=== PATIENT | female | born 1965 | race American Indian/Alaskan Native ===

== ENCOUNTER 2019-11-14 13:36 | Emergency (ER) | payer MEDICAID ==
[2019-11-14] MEDS ORDERED: IPRATROPIUM/ALBUTEROL SULFATE 3 ML AMPUL.NEB IH ONE (14:04)
[2019-11-14] MEDS ORDERED: FUROSEMIDE 20 MG/2 ML INJ IV ONE (14:04)
[2019-11-14] MEDS ORDERED: dexAMETHasone 4 MG/ML VIAL IV ONE (14:05)
--- NOTE | 2019-11-14 14:12 | Emergency Department Report ---
ED Shortness of Breath HPI - General Chief Complaint: Dyspnea/Respdistress Stated Complaint: REGGIE Time Seen by Provider: 11/14/19 13:58 Source: patient Mode of arrival: Stretcher Limitations: No Limitations - History of Present Illness Initial Comments: This is a 54-year-old female that presents to the ED with c/o of bilateral leg swelling,. SOB, wheezing, and chest tightness. Patient denies any radiation of pain x2 days. Last known stress test and echocardiogram is unknown. Patient denies any hemoptysis, fever, chills, nausea, vomiting, headache, stiff neck, numbness, tingling, abdominal pain. Patient denies pleuritic chest pain. Patient denies any recent travels or long car rides. Patient denies any recent surgeries or any sick contacts. Patient denies any drug allergies. Denies any leg pain or calf pain. PMH includes DM, CABG, UT, CVA, HTN, and ashtma. MD Complaint: shortness of breath, chest pain -: days(s) (2) Severity: mild Pain Scale: 3 Quality: other (tightness) Consistency: constant Improves With: nothing Worsens With: nothing Associated Symptoms: chest pain, orhopnia, lower extremity pain Treatments Prior to Arrival: none - Related Data Home Medications Medication Instructions Recorded Confirmed Last Taken Aspirin [Aspirin BABY CHEW TAB] 81 mg PO DAILY 02/21/14 11/14/19 Unknown Clopidogrel Bisulfate [Plavix] 75 mg PO DAILY 02/21/14 11/14/19 Unknown Insulin Glargine,Hum.rec.anlog 30 units SQ QHS 02/21/14 11/14/19 Unknown [Lantus] Omeprazole [PriLOSEC] 20 mg PO DAILY 02/21/14 11/14/19 Unknown Sertraline [Zoloft] 50 mg PO DAILY 02/21/14 11/14/19 Unknown AtorvaSTATin 80 mg PO HS 11/14/19 11/14/19 Unknown Coreg 12.5 mg PO BID 11/14/19 11/14/19 Unknown Gabapentin 300 mg PO TID 11/14/19 11/14/19 Unknown amLODIPine 5 mg PO DAILY 11/14/19 11/14/19 Unknown Previous Rx's Medication Instructions Recorded Last Taken Type Aspirin [Aspirin BABY CHEW TAB] 81 mg PO QDAY #30 tab.chew 04/17/17 Unknown Rx Allergies Allergy/AdvReac Type Severity Reaction Status Date / Time No Known Allergies Allergy Unverified 02/21/14 21:07 ED Review of Systems ROS: Stated complaint: REGGIE Other details as noted in HPI Constitutional: denies: chills, fever Eyes: denies: eye pain, eye discharge, vision change ENT: denies: ear pain, throat pain Respiratory: shortness of breath, wheezing. denies: cough Cardiovascular: chest pain. denies: palpitations Endocrine: no symptoms reported Gastrointestinal: denies: abdominal pain, nausea, diarrhea Genitourinary: denies: urgency, dysuria, discharge Musculoskeletal: denies: back pain, joint swelling, arthralgia Skin: denies: rash, lesions Neurological: denies: headache, weakness, paresthesias Psychiatric: denies: anxiety, depression Hematological/Lymphatic: denies: easy bleeding, easy bruising ED Past Medical Hx - Past Medical History Previous Medical History?: Yes Hx Hypertension: Yes Hx CVA: Yes (L sided deficits) Hx Heart Attack/AMI: Yes Hx Diabetes: Yes Hx Asthma: Yes Additional medical history: neuropathy, gout - Surgical History Past Surgical History?: Yes Hx Open Heart Surgery: Yes (triple CABG) Additional Surgical History: - Social History Smoking Status: Never Smoker Substance Use Type: None - Medications Home Medications: Home Medications Medication Instructions Recorded Confirmed Last Taken Type Aspirin [Aspirin BABY CHEW TAB] 81 mg PO DAILY 02/21/14 11/14/19 Unknown History Clopidogrel Bisulfate [Plavix] 75 mg PO DAILY 02/21/14 11/14/19 Unknown History Insulin Glargine,Hum.rec.anlog 30 units SQ QHS 02/21/14 11/14/19 Unknown History [Lantus] Omeprazole [PriLOSEC] 20 mg PO DAILY 02/21/14 11/14/19 Unknown History Sertraline [Zoloft] 50 mg PO DAILY 02/21/14 11/14/19 Unknown History Aspirin [Aspirin BABY CHEW TAB] 81 mg PO QDAY #30 tab.chew 04/17/17 11/14/19 Unknown Rx AtorvaSTATin 80 mg PO HS 11/14/19 11/14/19 Unknown History Coreg 12.5 mg PO BID 11/14/19 11/14/19 Unknown History Gabapentin 300 mg PO TID 11/14/19 11/14/19 Unknown History amLODIPine 5 mg PO DAILY 11/14/19 11/14/19 Unknown History ED Physical Exam - General Limitations: No Limitations General appearance: alert, in no apparent distress - Head Head exam: Present: atraumatic, normocephalic - Eye Eye exam: Present: normal appearance - Neck Neck exam: Present: normal inspection, full ROM. Absent: tenderness, meningismus - Respiratory Respiratory exam: Present: wheezes. Absent: respiratory distress, chest wall tenderness, accessory muscle use, decreased breath sounds, prolonged expiratory - Cardiovascular Cardiovascular Exam: Present: tachycardia. Absent: bradycardia, irregular rhythm - GI/Abdominal GI/Abdominal exam: Present: soft, normal bowel sounds. Absent: distended, tenderness, guarding, rebound, rigid, diminished bowel sounds - Extremities Exam Extremities exam: Present: full ROM, normal capillary refill, pedal edema (bilateral 2+). Absent: tenderness, calf tenderness - Back Exam Back exam: Present: normal inspection, full ROM - Neurological Exam Neurological exam: Present: alert, oriented X3, normal gait - Psychiatric Psychiatric exam: Present: normal affect, normal mood - Skin Skin exam: Present: warm, dry, intact, normal color. Absent: rash ED Course Vital Signs 11/14/19 11/14/19 11/14/19 13:44 13:46 13:50 Temperature 98.6 F Pulse Rate 122 H 117 H Respiratory 22 16 Rate Blood Pressure 174/115 163/110 Blood Pressure [Left] O2 Sat by Pulse 100 98 99 Oximetry 11/14/19 11/14/19 11/14/19 14:00 14:28 14:30 Temperature Pulse Rate 121 H 119 H 118 H Respiratory 12 22 12 Rate Blood Pressure 182/112 183/124 182/119 Blood Pressure [Left] O2 Sat by Pulse 99 99 99 Oximetry 11/14/19 11/14/19 11/14/19 14:45 15:10 15:15 Temperature Pulse Rate 115 H Respiratory 17 Rate Blood Pressure 176/118 188/119 192/122 Blood Pressure [Left] O2 Sat by Pulse 100 98 96 Oximetry 11/14/19 11/14/19 11/14/19 15:30 15:43 15:45 Temperature 98.6 F Pulse Rate 115 H Respiratory 16 Rate Blood Pressure 194/126 192/123 Blood Pressure 192/123 [Left] O2 Sat by Pulse 97 100 99 Oximetry 11/14/19 11/14/19 11/14/19 16:00 16:15 16:30 Temperature Pulse Rate Respiratory Rate Blood Pressure 197/123 181/113 177/102 Blood Pressure [Left] O2 Sat by Pulse 95 96 96 Oximetry 11/14/19 11/14/19 11/14/19 16:45 17:00 17:33 Temperature Pulse Rate Respiratory Rate Blood Pressure 170/108 164/106 164/106 Blood Pressure [Left] O2 Sat by Pulse 96 98 98 Oximetry 11/14/19 17:35 Temperature Pulse Rate 120 H Respiratory 16 Rate Blood Pressure Blood Pressure 148/90 [Left] O2 Sat by Pulse 96 Oximetry - Reevaluation(s) Reevaluation #1: 11/14/19 14:13 Patient is speaking in full sentences with no signs of distress noted. - Consultations Consultation #1: 11/14/19 17:42 Patient has been consulted with Dr. Angie V about patient history, physical exam, and labs and accepts patient to services. ED Medical Decision Making - Lab Data Result diagrams: 11/14/19 14:36 11/14/19 14:36 Lab Results 11/14/19 11/14/19 11/14/19 Range/Units 14:36 14:36 14:36 WBC 7.4 (4.5-11.0) K/mm3 RBC 3.34 L (3.65-5.03) M/mm3 Hgb 10.2 (10.1-14.3) gm/dl Hct 30.7 (30.3-42.9) % MCV 92 (79-97) fl MCH 31 (28-32) pg MCHC 33 (30-34) % RDW 14.2 (13.2-15.2) % Plt Count 312 (140-440) K/mm3 Lymph % (Auto) 20.6 (13.4-35.0) % Foster % (Auto) 8.8 H (0.0-7.3) % Eos % (Auto) 2.6 (0.0-4.3) % Baso % (Auto) 1.3 (0.0-1.8) % Lymph # 1.5 (1.2-5.4) K/mm3 Foster # 0.7 (0.0-0.8) K/mm3 Eos # 0.2 (0.0-0.4) K/mm3 Baso # 0.1 (0.0-0.1) K/mm3 Seg Neutrophils % 66.7 (40.0-70.0) % Seg Neutrophils # 5.0 (1.8-7.7) K/mm3 PT 14.1 (12.2-14.9) Sec. INR 1.11 (0.87-1.13) APTT 26.2 (24.2-36.6) Sec. D-Dimer 1429.66 H (0-234) ng/mlDDU Sodium 138 (137-145) mmol/L Potassium 5.3 H (3.6-5.0) mmol/L Chloride 106.6 (98-107) mmol/L Carbon Dioxide 19 L (22-30) mmol/L Anion Gap 18 mmol/L BUN 31 H (7-17) mg/dL Creatinine 2.8 H (0.7-1.2) mg/dL Estimated GFR 21 ml/min BUN/Creatinine Ratio 11 % Glucose 259 H (65-100) mg/dL Calcium 8.8 (8.4-10.2) mg/dL Total Bilirubin 0.90 (0.1-1.2) mg/dL AST 25 (5-40) units/L ALT 29 (7-56) units/L Alkaline Phosphatase 98 (35-129) units/L Troponin T 0.015 (0.00-0.029) ng/mL NT-Pro-B Natriuret Pep (0-900) pg/mL Total Protein 6.4 (6.3-8.2) g/dL Albumin 3.5 L (3.9-5) g/dL Albumin/Globulin Ratio 1.2 % Urine Color (Yellow) Urine Turbidity (Clear) Urine pH (5.0-7.0) Ur Specific [place] (1.003-1.030) Urine Protein (Negative) mg/dL Urine Glucose (UA) (Negative) mg/dL Urine Ketones (Negative) mg/dL Urine Blood (Negative) Urine Nitrite (Negative) Urine Bilirubin (Negative) Urine Urobilinogen (<2.0) mg/dL Ur Leukocyte Esterase (Negative) Urine WBC (Auto) (0.0-6.0) /HPF Urine RBC (Auto) (0.0-6.0) /HPF U Epithel Cells (Auto) (0-13.0) /HPF Urine Bacteria (Auto) (Negative) /HPF Urine Mucus /HPF 11/14/19 11/14/19 Range/Units 14:36 Unknown WBC (4.5-11.0) K/mm3 RBC (3.65-5.03) M/mm3 Hgb (10.1-14.3) gm/dl Hct (30.3-42.9) % MCV (79-97) fl MCH (28-32) pg MCHC (30-34) % RDW (13.2-15.2) % Plt Count (140-440) K/mm3 Lymph % (Auto) (13.4-35.0) % Foster % (Auto) (0.0-7.3) % Eos % (Auto) (0.0-4.3) % Baso % (Auto) (0.0-1.8) % Lymph # (1.2-5.4) K/mm3 Foster # (0.0-0.8) K/mm3 Eos # (0.0-0.4) K/mm3 Baso # (0.0-0.1) K/mm3 Seg Neutrophils % (40.0-70.0) % Seg Neutrophils # (1.8-7.7) K/mm3 PT (12.2-14.9) Sec. INR (0.87-1.13) APTT (24.2-36.6) Sec. D-Dimer (0-234) ng/mlDDU Sodium (137-145) mmol/L Potassium (3.6-5.0) mmol/L Chloride (98-107) mmol/L Carbon Dioxide (22-30) mmol/L Anion Gap mmol/L BUN (7-17) mg/dL Creatinine (0.7-1.2) mg/dL Estimated GFR ml/min BUN/Creatinine Ratio % Glucose (65-100) mg/dL Calcium (8.4-10.2) mg/dL Total Bilirubin (0.1-1.2) mg/dL AST (5-40) units/L ALT (7-56) units/L Alkaline Phosphatase (35-129) units/L Troponin T (0.00-0.029) ng/mL NT-Pro-B Natriuret Pep 9275 H (0-900) pg/mL Total Protein (6.3-8.2) g/dL Albumin (3.9-5) g/dL Albumin/Globulin Ratio % Urine Color Straw (Yellow) Urine Turbidity Clear (Clear) Urine pH 6.0 (5.0-7.0) Ur Specific [place] 1.008 (1.003-1.030) Urine Protein 100 mg/dl (Negative) mg/dL Urine Glucose (UA) >=500 (Negative) mg/dL Urine Ketones Neg (Negative) mg/dL Urine Blood Sm (Negative) Urine Nitrite Neg (Negative) Urine Bilirubin Neg (Negative) Urine Urobilinogen < 2.0 (<2.0) mg/dL Ur Leukocyte Esterase Tr (Negative) Urine WBC (Auto) 2.0 (0.0-6.0) /HPF Urine RBC (Auto) 1.0 (0.0-6.0) /HPF U Epithel Cells (Auto) 2.0 (0-13.0) /HPF Urine Bacteria (Auto) 1+ (Negative) /HPF Urine Mucus Few /HPF - EKG Data 11/14/19 14:30 Sinus tachycardia 122. No significant ST abnormalities. signed and reviewed by Dr. Wong. - Radiology Data Patient Name: ANGELA VILLANUEVA Gender: Female Date of : 1965 Referring Provider: SIENNA DEL VALLE Organization: [facility] Accession Number: [id number] Requested Date: November 14, 2019 15:37 Report Status: Final Requested Procedure: 1 Procedure Description: NM perfusion only lung scan Modality: NM Findings Reporting MD: Daniel Wilkinson Dictation Time: November 14, 2019 16:33 Patient Navigator: Not available Industrial Relations Officer Date: NUCLEAR MEDICINE PERFUSION LUNG SCAN INDICATION / CLINICAL INFORMATION: sob/elevated d-dimmer. TECHNIQUE: 4.9 mCi of Tc-99m MAA were given by IV. COMPARISON: Chest radiograph dated earlier today. FINDINGS: PERFUSION: No significant perfusion defects. ADDITIONAL FINDINGS: None. IMPRESSION: 1. Low probability for pulmonary embolism. Signer Name: Daniel Wilkinson MD Signed: 11/14/2019 4:33 PM Workstation Name: [id number] Patient Name: ANGELA VILLANUEVA Gender: Female Date of : 1965 Referring Provider: SIENNA DEL VALLE Organization: [facility] Accession Number: [id number] Requested Date: November 14, 2019 14:04 Report Status: Final Requested Procedure: 1 Procedure Description: XR chest routine 2V Modality: XR Findings Reporting MD: Daniel Wilkinson Dictation Time: November 14, 2019 13:45 Patient Navigator: Not available Industrial Relations Officer Date: CHEST 2 VIEWS INDICATION / CLINICAL INFORMATION: MAIN: Chest Pain X 3 DAYS. COMPARISON: Chest radiograph 04/16/2017 FINDINGS: SUPPORT DEVICES: None. HEART / MEDIASTINUM: Normal heart size. Previous median sternotomy and CABG. LUNGS / PLEURA: No airspace consolidation or pleural fluid. There is interstitial reticulation throughout both lungs including Kerry B lines. No pneumothorax. ADDITIONAL FINDINGS: No significant additional findings. IMPRESSION: Appearance is suggestive of mild interstitial pulmonary edema. Signer Name: Daniel Wilkinson MD Signed: 11/14/2019 1:45 PM Workstation Name: [id number] - Medical Decision Making 54-year-old female that presents with CHF exacerbation. Patient is stable and was examined by me. Labs has been obtained. VQ scan obtained and negative for PE. Chest x-ray does show that she has some fluid in her lungs due to CHF. Patient admitted with hospitalist Dr. Adams. At time of admission, the patient does not seem toxic or ill in appearance. No acute signs of distress noted. Patient agrees to admission treatment plan of care. No further questions noted by the patient. At the time of admission, patient stated she wants to leave. Patient was notified of the risk and complications if not further evaulation and treatment but patient refused. 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 Patient signed AMA. Critical care attestation.: If time is entered above; I have spent that time in minutes in the direct care of this critically ill patient, excluding procedure time. ED Disposition Clinical Impression: Uncontrolled hypertension Acute exacerbation of CHF (congestive heart failure) Qualifiers: Heart failure type: unspecified Qualified Code(s): I50.9 - Heart failure, unspecified Disposition: DC-07 LEFT AGAINST MED ADVICE Is pt being admited?: No Does the pt Need Aspirin: No Condition: Undetermined Instructions: Heart Failure (ED), Chronic Hypertension (ED) Additional Instructions: You are leaving AGAINST MEDICAL ADVICE. As instructed and educated to you during your ED stay that this is a serious medical condition and if not further evaluated and or treated this could cause serious complications and or . Referrals: ZURI SCOTT MD [Staff Physician] - [facility], [Primary Care Provider] - [facility] CAITY SAMPSON MD [Staff Physician] - [facility] Forms: AMA Form
--- NOTE | 2019-11-14 14:49 | XRay Report ---
CHEST 2 VIEWS INDICATION / CLINICAL INFORMATION: MAIN: Chest Pain X 3 DAYS. COMPARISON: Chest radiograph 04/16/2017 FINDINGS: SUPPORT DEVICES: None. HEART / MEDIASTINUM: Normal heart size. Previous median sternotomy and CABG. LUNGS / PLEURA: No airspace consolidation or pleural fluid. There is interstitial reticulation throug hout both lungs including Kerry B lines. No pneumothorax. ADDITIONAL FINDINGS: No significant additional findings. IMPRESSION: Appearance is suggestive of mild interstitial pulmonary edema. Signer Name: Daniel Wilkinson MD Signed: 11/14/2019 2:45 PM Workstation Name: [id number]
[2019-11-14 15:24] LABS: Basophils # (Auto) 0.1 K/mm3 (0.0-0.1); Basophils % (Auto) 1.3 % (0.0-1.8); Eosinophils # (Auto) 0.2 K/mm3 (0.0-0.4); Eosinophils % (Auto) 2.6 % (0.0-4.3); Hematocrit 30.7 % (30.3-42.9); Hemoglobin 10.2 gm/dl (10.1-14.3); Lymphocytes # (Auto) 1.5 K/mm3 (1.2-5.4); Lymphocytes % (Auto) 20.6 % (13.4-35.0); Mean Corpuscular HGB Conc 33 % (30-34); Mean Corpuscular Volume 92 fl (79-97); Monocytes # (Auto) 0.7 K/mm3 (0.0-0.8); Monocytes % (Auto) 8.8 % (0.0-7.3); Platelet Count 312 K/mm3 (140-440); Red Blood Count 3.34 M/mm3 (3.65-5.03); Red Cell Distribution Width 14.2 % (13.2-15.2)
[2019-11-14 15:26] LABS: Albumin 3.5 g/dL (3.9-5); Calcium 8.8 mg/dL (8.4-10.2)
[2019-11-14 15:32] LABS: Bacteria,Urine 1+ /HPF (Negative); Bilirubin,Urine NEG (Negative); Blood,Urine SM (Negative); Color,Urine Straw (Yellow); Mucus,Urine FEW /HPF; Urobilinogen,Urine < 2.0 mg/dL (<2.0)
[2019-11-14 15:32] LABS: INR 1.11 (0.87-1.13); Partial Thromboplastin Time 26.2 Sec. (24.2-36.6)
[2019-11-14] MEDS ORDERED: hydrALAZINE 20 MG/1 ML INJ IV ONE (16:21)
[2019-11-14 17:36] VITALS: BP 148/90
--- NOTE | 2019-11-14 17:37 | Nuclear Medicine Report ---
NUCLEAR MEDICINE PERFUSION LUNG SCAN INDICATION / CLINICAL INFORMATION: sob/elevated d-dimmer. TECHNIQUE: 4.9 mCi of Tc-99m MAA were given by IV. COMPARISON: Chest radiograph dated earlier today. FINDINGS: PERFUSION: No significant perfusion defects. ADDITIONAL FINDINGS: None. IMPRESSION: 1. Low probability for pulmonary embolism. Signer Name: Daniel Wilkinson MD Signed: 11/14/2019 5:33 PM Workstation Name: [id number]
== END 2019-11-14 18:37 | disposition left against medical advice (07) ==
LOC: ED 13:36
DX: I11.0 Hypertensive heart disease with heart failure (principal); I50.9 Heart failure, unspecified; I25.2 Old myocardial infarction; J45.909 Unspecified asthma, uncomplicated; E11.9 Type 2 diabetes mellitus without complications; M10.9 Gout, unspecified; Z98.890 Other specified postprocedural states; Z86.73 Personal history of transient ischemic attack (TIA), and cerebral infarction without residual deficits; Z79.899 Other long term (current) drug therapy; Z95.5 Presence of coronary angioplasty implant and graft
CPT/HCPCS: 36415; 71046; 78580; 80053; 81001; 83880; 84484; 85025; 85379; 85610; 85730; 93005; 96374; 96375; 99285; A9540; J0360; J1100; J1940

== ENCOUNTER 2020-02-19 01:30 | Emergency (ER) | payer MEDICAID ==
[2020-02-19 02:33] VITALS: BP 165/113
[2020-02-19 03:19] LABS: Basophils # (Auto) 0.1 K/mm3 (0.0-0.1); Basophils % (Auto) 1.1 % (0.0-1.8); Eosinophils # (Auto) 0.1 K/mm3 (0.0-0.4); Eosinophils % (Auto) 0.7 % (0.0-4.3); Hematocrit 36.3 % (30.3-42.9); Hemoglobin 12.1 gm/dl (10.1-14.3); Lymphocytes # (Auto) 1.6 K/mm3 (1.2-5.4); Lymphocytes % (Auto) 18.3 % (13.4-35.0); Mean Corpuscular HGB Conc 33 % (30-34); Mean Corpuscular Volume 92 fl (79-97); Monocytes # (Auto) 0.9 K/mm3 (0.0-0.8); Monocytes % (Auto) 9.8 % (0.0-7.3); Platelet Count 272 K/mm3 (140-440); Red Blood Count 3.95 M/mm3 (3.65-5.03)
[2020-02-19 03:37] LABS: Calcium 8.7 mg/dL (8.4-10.2)
--- NOTE | 2020-02-19 03:51 | XRay Report ---
CHEST 1 VIEW INDICATION: jorje. COMPARISON: 11/14/2019 FINDINGS: Support devices: None. Heart: Stable cardiomegaly status post previous median sternotomy. Lungs/Pleura: Mild blunting remains at the cardiophrenic angles. No acute infiltrate. Additional findings: None. IMPRESSION: Stable chest. Signer Name: Josue Griffin MD Signed: 02/19/2020 3:47 AM Workstation Name: [id number]
== END 2020-02-19 06:45 | disposition left against medical advice (07) ==
LOC: ED 01:30
DX: M79.89 Other specified soft tissue disorders (principal); R06.00 Dyspnea, unspecified; Z53.21 Procedure and treatment not carried out due to patient leaving prior to being seen by health care provider
CPT/HCPCS: 36415; 71045; 80048; 85025; 93005

== ENCOUNTER 2020-03-04 21:05 | Emergency (ER) | payer MEDICAID ==
[~2020-03-04 21:05] MED LIST: CALCIUM CHLORIDE 1,000 MG/10 ML SYRINGE IV ONE; EPINEPHrine 1 MG/10 ML SYRINGE ONE; SODIUM BICARB 8.4% 50 MEQ/50 ML SYRINGE IV ONE
[2020-03-04] MEDS ORDERED: SODIUM CHLORIDE 0.9% 1000 ML 2,000 ML ONE (21:18)
[2020-03-04] MEDS ORDERED: NORepinephrine/NS 4 MG-250 ML 4 MG/250 ML BAG IV ONE (21:25)
[2020-03-04] MEDS ORDERED: EPINEPHrine 1 MG/1 ML 8 MG in SODIUM CHLORIDE 0.9% 250ML 242 ML IV ONE (21:32)
--- NOTE | 2020-03-04 21:52 | Emergency Department Report ---
ED CPR HPI - General Stated Complaint: CARDIAC ARREST - History of Present Illness Initial Comments: This is a 54-year-old -[place] female who presents to the emergency department via EMS from home in cardiac arrest. Apparently the patient came home this evening and family found her unresponsive about 10 to 15 minutes later. EMS says that her downtime was around 15 minutes prior to their arrival. Upon arrival the patient was pulseless and in asystole. The patient was intubated and was receiving bag valve ventilation. She was receiving chest compressions. A peripheral IV was placed by EMS and the patient received a total of 3 rounds of epinephrine and 1 of sodium bicarbonate. The patient went from asystole to PEA. She had a critical high Accu-Chek. The only past medical history from EMS is that the patient has diabetes. The patient appears to have been to our hospital previously and also has a history of hypertension and CHF. The patient arrives to bed #1 still pulseless and in PEA. - Related Data Home Medications Medication Instructions Recorded Confirmed Last Taken Aspirin [Aspirin BABY CHEW TAB] 81 mg PO DAILY 02/21/14 11/14/19 Unknown Clopidogrel Bisulfate [Plavix] 75 mg PO DAILY 02/21/14 11/14/19 Unknown Insulin Glargine,Hum.rec.anlog 30 units SQ QHS 02/21/14 11/14/19 Unknown [Lantus] Omeprazole [PriLOSEC] 20 mg PO DAILY 02/21/14 11/14/19 Unknown Sertraline [Zoloft] 50 mg PO DAILY 02/21/14 11/14/19 Unknown AtorvaSTATin 80 mg PO HS 11/14/19 11/14/19 Unknown Coreg 12.5 mg PO BID 11/14/19 11/14/19 Unknown Gabapentin 300 mg PO TID 11/14/19 11/14/19 Unknown amLODIPine 5 mg PO DAILY 11/14/19 11/14/19 Unknown Previous Rx's Medication Instructions Recorded Last Taken Type Aspirin [Aspirin BABY CHEW TAB] 81 mg PO QDAY #30 tab.chew 04/17/17 Unknown Rx Allergies Allergy/AdvReac Type Severity Reaction Status Date / Time No Known Allergies Allergy Unverified 02/21/14 21:07 ED Review of Systems ROS: Stated complaint: CARDIAC ARREST Other details as noted in HPI Comment: Unobtainable due to pts medical conditions ED Past Medical Hx - Past Medical History Hx Hypertension: Yes Hx CVA: Yes (L sided deficits) Hx Heart Attack/AMI: Yes Hx Diabetes: Yes Hx Asthma: Yes Additional medical history: neuropathy, gout - Surgical History Hx Open Heart Surgery: Yes (triple CABG) Additional Surgical History: - Social History Smoking Status: Never Smoker Substance Use Type: None - Medications Home Medications: Home Medications Medication Instructions Recorded Confirmed Last Taken Type Aspirin [Aspirin BABY CHEW TAB] 81 mg PO DAILY 02/21/14 11/14/19 Unknown History Clopidogrel Bisulfate [Plavix] 75 mg PO DAILY 02/21/14 11/14/19 Unknown History Insulin Glargine,Hum.rec.anlog 30 units SQ QHS 02/21/14 11/14/19 Unknown History [Lantus] Omeprazole [PriLOSEC] 20 mg PO DAILY 02/21/14 11/14/19 Unknown History Sertraline [Zoloft] 50 mg PO DAILY 02/21/14 11/14/19 Unknown History Aspirin [Aspirin BABY CHEW TAB] 81 mg PO QDAY #30 tab.chew 04/17/17 11/14/19 Unknown Rx AtorvaSTATin 80 mg PO HS 11/14/19 11/14/19 Unknown History Coreg 12.5 mg PO BID 11/14/19 11/14/19 Unknown History Gabapentin 300 mg PO TID 11/14/19 11/14/19 Unknown History amLODIPine 5 mg PO DAILY 11/14/19 11/14/19 Unknown History ED Physical Exam - Other Other exam information: GENERAL: Patient is ill-appearing and unresponsive. HENT: Normocephalic. Atraumatic. EYES: Pupils are fixed and dilated. NECK: Supple. Trachea appears midline. CHEST/LUNGS: There are no spontaneous respirations. HEART/CARDIOVASCULAR: There are no spontaneous heart sounds. ABDOMEN: Abdomen is soft. There is no abdominal distention. SKIN: Skin is cool but dry. NEURO: Unresponsive. Does not withdraw to painful stimuli. Does not follow any commands. MUSCULOSKELETAL: There is no obvious deformity. There is no evidence of acute injury. No palpable femoral or radial pulses. - Central Line Placement Right Femoral Consent Obtained: emergent situation Patient Placed on Monitor/Pulse Ox: Yes MD Prep: mask, gown, gloves Central Line Prep: Chlorhexidine scrub Ultrasound Used for Placement: No Central Line Lumen Inserted: triple Central Line Position: good blood return, all ports aspirated, flus, sutured in place with nyl Dressing Applied: Tegaderm Patient Tolerated Procedure: well Complications: none ED Medical Decision Making - Medical Decision Making This patient presented to the emergency department in cardiac arrest. She had received 3 rounds of epinephrine and 1 and sodium bicarbonate pre-arrival. The patient was intubated by EMS, they placed a peripheral IV. The patient was getting bag valve ventilation and chest compressions consistent with ACLS protocol. Patient also had an Accu-Chek in route that was critically high. Upon arrival to our emergency department the patient was moved to the [facility] in bed #1 where we continued chest compressions, bag valve ventilation, and ACLS protocol. The patient had 3 rounds of ACLS including epinephrine, sodium bicarbonate and calcium given. With each pulse and rhythm check the patient was pulseless in PEA. After the third round the patient appeared to have a return of spontaneous circulation. At this point the patient was given some IV fluid resuscitation. I began placing a right femoral central venous catheter. The patient once again lost her pulse. The right CVC was placed during ACLS protocol but was still done under sterile field. The patient had multiple different times in which she lost her pulse, ACLS protocol was initiated and then she would have return of spontaneous circulation. Over this time the patient received IV fluid resuscitation, Levophed was started, and towards the end the patient also had an epinephrine drip that was started. The patient would not maintain her pulse more than a few minutes at a time. At first we were able to give a dose of epinephrine and do 1 round of chest compressions to achieve ROSC. However, after about 40 minutes, the patient no longer appeared to respond to the epinephrine, chest compressions and bag valve ventilation. The patient went 3 rounds of ACLS protocol without any return of spontaneous circulation. At this point the patient had been essentially pulseless and hypoxic for close to 1 hour, except for a few intermittent minutes of ROSC. Patient's pupils are fixed and dilated. There is no spontaneous heart or breath sounds. Time of was called at 2145. The patient's family has been notified of the patient's expiration. Critical Care Time: Yes Critical care time in (mins) excluding proc time.: 40 Critical care attestation.: If time is entered above; I have spent that time in minutes in the direct care of this critically ill patient, excluding procedure time. Critical care time is spent on this patient in doing her initial evaluation, supervision of ACLS protocol, and discussion of expiration with the patient's family. This does not include the time spent doing the central venous catheter procedure. Critical Care Time: 40 minutes ED Disposition Clinical Impression: Cardiac arrest Acute respiratory failure Qualifiers: Respiratory failure complication: unspecified whether with hypoxia or hypercapnia Qualified Code(s): J96.00 - Acute respiratory failure, unspecified whether with hypoxia or hypercapnia Disposition: DC-20 Is pt being admited?: No Time of Disposition: 22:39
== END 2020-03-05 ==
LOC: ED 21:05
DX: I46.9 Cardiac arrest, cause unspecified (principal); J96.00 Acute respiratory failure, unspecified whether with hypoxia or hypercapnia; I10 Essential (primary) hypertension; I25.2 Old myocardial infarction; J45.909 Unspecified asthma, uncomplicated; E11.40 Type 2 diabetes mellitus with diabetic neuropathy, unspecified; M10.9 Gout, unspecified; Z79.899 Other long term (current) drug therapy; Z79.4 Long term (current) use of insulin; Z98.890 Other specified postprocedural states
CPT/HCPCS: 36566; 92950; 96365; 99285; J0171; J7030; J7050